=== PATIENT | female | born 1935 | race Caucasian/White ===

== ENCOUNTER 2021-03-14 13:16 | Inpatient (IN) ==
[2021-03-14] MEDS ORDERED: Naloxone 0.4 MG/ML INJ IVP PRN (16:29)
[2021-03-14] MEDS ORDERED: *HR* OxyCODONE Immed Rel 5 MG TABLET PO PRN (16:29)
[2021-03-14] MEDS ORDERED: Ondansetron 4 MG/2 ML VIAL IVP PRN (16:29)
[2021-03-14] MEDS ORDERED: *HR* HYDROcodone/Acet 5/325 mg TABLET PO PRN (16:29)
[2021-03-14] MEDS ORDERED: Nitroglycerin 0.4 MG TAB.SUBL SL PRN (18:27)
[2021-03-15 06:26] LABS: Calcium 9.1 mg/dL (8.6-10.3); Magnesium 2.2 mg/dL (1.6-2.6); Phosphorous 3.7 mg/dL (2.7-4.5); Potassium 4.5 mEq/L (3.5-5.1)
[2021-03-15 06:30] LABS: Basophils % 0.3 %; Eosinophils # 0.1 K/mcL (0.0-0.6); Eosinophils % 1.3 %; Hematocrit 45.8 % (35.3-44.9); Hemoglobin 14.3 g/dL (11.5-15.4); INR 1.3; Immature Granulocytes % 0.2 % (0-4); Lymphocytes # 0.9 K/mcL (0.6-4.6); Lymphocytes % 14.9 %; Mean Corpuscular HGB Conc 31.2 g/dL (31.6-35.5); Mean Corpuscular Hemoglobin 29.5 pg (28.0-33.3); Mean Corpuscular Volume 94.4 fL (83.0-100.0); Mean Platelet Volume 11.9 fL (9.4-12.4); Monocytes # 0.6 K/mcL (0.0-1.3); Monocytes % 9.7 %; Neutrophils # 4.6 K/mcL (1.6-8.9); Platelet Count 149 K/mcL (140-400); Prothrombin Time 14.1 Seconds (9.4-12.1); Red Blood Count 4.85 M/mcL (3.82-4.97); Red Cell Distribution Width 13.5 % (11.5-14.5); Segmented Neutrophils % 73.6 %; White Blood Count 6.2 K/mcL (4.3-11.1)
[2021-03-15 06:33] LABS: Activated Partial Thrombo Time 27.3 Seconds (26.0-36.0)
[2021-03-15] MEDS ORDERED: Lidocaine -MPF 2% 5 ML VIAL ONE (08:56)
[2021-03-15] MEDS ORDERED: *HR* FentaNYL (PF) 100 MCG/2 ML VIAL ONE ×2 (08:56→13:14)
[2021-03-15] MEDS ORDERED: Ondansetron 4 MG/2 ML VIAL ONE (08:56)
[2021-03-15] MEDS ORDERED: *HR* Propofol 200 MG/20 ML VIAL IVP ONE (08:56)
[2021-03-15] MEDS ORDERED: *HR* Amiodarone 200 MG TABLET PO SCH (09:00)
[2021-03-15] MEDS ORDERED: Metoprolol XL (24 HR) Succ 25 MG TAB.ER.24H PO SCH ×2 (09:00)
[2021-03-15] MEDS ORDERED: Ondansetron 4 MG/2 ML VIAL IVP PRN ×3 (10:33→14:48)
[2021-03-15] MEDS ORDERED: Morphine Sulfate 2 MG/ML SYRINGE IVP PRN ×2 (10:33→14:48)
[2021-03-15] MEDS ORDERED: Ringers Solution, Lactated 1,000 ML IVC SCH ×2 (11:30→14:48)
[2021-03-15] MEDS ORDERED: Acetaminophen IV 1,000 MG/100 ML BAG IVPB ONE (12:11)
[2021-03-15] MEDS ORDERED: EPHEDrine 50 MG/ML VIAL ONE (12:22)
[2021-03-15] MEDS ORDERED: Naloxone 0.4 MG/ML INJ IVP PRN (14:48)
[2021-03-15] MEDS ORDERED: *HR* OxyCODONE Immed Rel 5 MG TABLET PO PRN (14:48)
[2021-03-15] MEDS ORDERED: Nitroglycerin 0.4 MG TAB.SUBL SL PRN (14:48)
[2021-03-15] MEDS ORDERED: Sennosides 8.6 MG TABLET PO PRN (14:48)
[2021-03-15] MEDS: CeFAZolin 2 GM/120 ML BAG IVPB SCH (19:42)
[2021-03-16] MEDS: CeFAZolin 2 GM/120 ML BAG IVPB SCH (03:54)
[2021-03-16] MEDS: Cholecalciferol (D-3) 1,000 UNIT (25MCG) TABLET PO SCH (08:30)
[2021-03-16] MEDS: Ascorbic Acid 500 MG TABLET PO SCH (08:31)
[2021-03-16] MEDS: *HR* Amiodarone 200 MG TABLET PO SCH (08:31)
[2021-03-16] MEDS: Metoprolol XL (24 HR) Succ 25 MG TAB.ER.24H PO SCH (08:32)
[2021-03-16] MEDS ORDERED: *HR* Amiodarone 200 MG TABLET PO SCH (09:00)
[2021-03-16] MEDS ORDERED: lisinopriL 20 MG TABLET PO SCH (09:00)
[2021-03-16] MEDS ORDERED: Ascorbic Acid 500 MG TABLET PO SCH (09:00)
[2021-03-16] MEDS ORDERED: Cholecalciferol (D-3) 1,000 UNIT (25MCG) TABLET PO SCH (09:00)
[2021-03-16] MEDS ORDERED: Apixaban 5 MG TABLET PO SCH (09:00)
[2021-03-16 10:36] LABS: Basophils % 0.1 %; Eosinophils % 0.1 %; Hematocrit 41.8 % (35.3-44.9); Hemoglobin 13.1 g/dL (11.5-15.4); Hemoglobin 13.2 g/dL (11.5-15.4); Immature Granulocytes % 0.4 % (0-4); Lymphocytes # 0.8 K/mcL (0.6-4.6); Lymphocytes % 6.1 %; Mean Corpuscular HGB Conc 31.3 g/dL (31.6-35.5); Mean Corpuscular Hemoglobin 29.4 pg (28.0-33.3); Mean Corpuscular Volume 93.7 fL (83.0-100.0); Mean Platelet Volume 11.8 fL (9.4-12.4); Monocytes # 0.7 K/mcL (0.0-1.3); Monocytes % 4.9 %; Neutrophils # 11.7 K/mcL (1.6-8.9); Platelet Count 171 K/mcL (140-400); Red Blood Count 4.46 M/mcL (3.82-4.97); Red Cell Distribution Width 13.1 % (11.5-14.5); Segmented Neutrophils % 88.4 %
[2021-03-16 10:40] LABS: White Blood Count 13.2 K/mcL (4.3-11.1)
[2021-03-16 10:51] LABS: Calcium 8.8 mg/dL (8.6-10.3); Potassium 3.9 mEq/L (3.5-5.1)
[2021-03-16] MEDS: *HR* HYDROcodone/Acet 5/325 mg TABLET PO PRN ×2 (13:29→21:16)
[2021-03-16] MEDS ORDERED: *HR* Rivaroxaban 10 MG TABLET PO SCH (17:00)
[2021-03-16] MEDS: *HR* Rivaroxaban 10 MG TABLET PO SCH (21:16)
[2021-03-17] MEDS: Metoprolol XL (24 HR) Succ 25 MG TAB.ER.24H PO SCH (08:20)
[2021-03-17] MEDS: Ascorbic Acid 500 MG TABLET PO SCH (08:20)
[2021-03-17] MEDS: Cholecalciferol (D-3) 1,000 UNIT (25MCG) TABLET PO SCH (08:21)
[2021-03-17] MEDS: *HR* Amiodarone 200 MG TABLET PO SCH (08:21)
[2021-03-17] MEDS ORDERED: *HR* Rivaroxaban 10 MG TABLET PO SCH (09:00)
[2021-03-17 12:17] LABS: Basophils % 0.4 %; Eosinophils # 0.2 K/mcL (0.0-0.6); Eosinophils % 1.7 %; Hematocrit 39.2 % (35.3-44.9); Hemoglobin 12.3 g/dL (11.5-15.4); Immature Granulocytes % 0.2 % (0-4); Lymphocytes # 1.4 K/mcL (0.6-4.6); Lymphocytes % 15.3 %; Mean Corpuscular HGB Conc 31.4 g/dL (31.6-35.5); Mean Corpuscular Hemoglobin 29.1 pg (28.0-33.3); Mean Corpuscular Volume 92.7 fL (83.0-100.0); Monocytes # 0.9 K/mcL (0.0-1.3); Monocytes % 10.1 %; Neutrophils # 6.5 K/mcL (1.6-8.9); Platelet Count 163 K/mcL (140-400); Red Blood Count 4.23 M/mcL (3.82-4.97); Red Cell Distribution Width 13.5 % (11.5-14.5); Segmented Neutrophils % 72.3 %
[2021-03-17 12:34] LABS: BUN/Creatinine Ratio 29 (6-26); Blood Urea Nitrogen 26 mg/dL (8-23); Calcium 8.8 mg/dL (8.6-10.3); Carbon Dioxide 27 mEq/L (23-29); Chloride 105 mEq/L (98-107); Glucose 83 mg/dL (70-105); Magnesium 2.1 mg/dL (1.6-2.6); Osmolality,Calculated 288 (280-300); Potassium 4.2 mEq/L (3.5-5.1); Sodium 137 mEq/L (136-145); eGFR For African Americans > 60 (> 60); eGFR For Non-African Americans > 60 (> 60)
[2021-03-17] MEDS: *HR* HYDROcodone/Acet 5/325 mg TABLET PO PRN (14:14)
[2021-03-17] MEDS: NIFEdipine XL (24 HR) 60 MG TAB.ER.24 PO SCH (14:14)
[2021-03-17] MEDS: *HR* Rivaroxaban 10 MG TABLET PO SCH (20:57)
[2021-03-18] MEDS: *HR* HYDROcodone/Acet 5/325 mg TABLET PO PRN (01:49)
[2021-03-18] MEDS: *HR* Amiodarone 200 MG TABLET PO SCH (07:46)
[2021-03-18] MEDS: lisinopriL 20 MG TABLET PO SCH (07:47)
[2021-03-18] MEDS: Cholecalciferol (D-3) 1,000 UNIT (25MCG) TABLET PO SCH (07:47)
[2021-03-18] MEDS: Ascorbic Acid 500 MG TABLET PO SCH (07:47)
[2021-03-18] MEDS: NIFEdipine XL (24 HR) 60 MG TAB.ER.24 PO SCH (07:47)
[2021-03-18] MEDS: Metoprolol XL (24 HR) Succ 25 MG TAB.ER.24H PO SCH (07:48)
[2021-03-18] MEDS: *HR* Rivaroxaban 10 MG TABLET PO SCH (20:48)
[2021-03-19] MEDS: *HR* HYDROcodone/Acet 5/325 mg TABLET PO PRN ×2 (04:02→13:42)
[2021-03-19] MEDS: lisinopriL 20 MG TABLET PO SCH (08:15)
[2021-03-19] MEDS: Cholecalciferol (D-3) 1,000 UNIT (25MCG) TABLET PO SCH (08:15)
[2021-03-19] MEDS: Ascorbic Acid 500 MG TABLET PO SCH (08:16)
[2021-03-19] MEDS: *HR* Amiodarone 200 MG TABLET PO SCH (08:16)
[2021-03-19] MEDS: Metoprolol XL (24 HR) Succ 25 MG TAB.ER.24H PO SCH (08:17)
[2021-03-19] MEDS: NIFEdipine XL (24 HR) 60 MG TAB.ER.24 PO SCH (08:18)
[2021-03-19 11:19] VITALS: BP 120/68; PULSE 58; TEMP 97.9; O2SAT 96
[2021-03-19 11:34] LABS: Adenovirus Not Detected (Not Detect); Bordetella Pertussis Not Detected (Not Detect); Chlamydophila pneumoniae Not Detected (Not Detect); Coronavirus 229E Not Detected (Not Detect); Coronavirus HKU1 Not Detected (Not Detect); Coronavirus NL63 Not Detected (Not Detect); Coronavirus OC43 Not Detected (Not Detect); Human Metapneumovirus Not Detected (Not Detect); Human Rhinovirus/Enterovirus Not Detected (Not Detect); Influenza A Subtype 2009 H1 Not Detected (Not Detect); Influenza B Not Detected (Not Detect); Mycoplasma pneumoniae Not Detected (Not Detect); Parainfluenza Virus 1 Not Detected (Not Detect); Parainfluenza Virus 2 Not Detected (Not Detect); Parainfluenza Virus 3 Not Detected (Not Detect); Parainfluenza Virus 4 Not Detected (Not Detect); Respiratory Syncytial Virus Not Detected (Not Detect); SARS-CoV-2 Not Detected (Not Detect)
== END 2021-03-19 14:01 | disposition other institution (70) | DRG 482 ==
LOC: 4WAOSI → SUATTDRO 16:12
PROVIDERS: ADMIT Internal Medicine; ATTEND Internal Medicine